=== PATIENT | male | born 1980 | race Caucasian/White ===

== ENCOUNTER 2024-03-27 20:50 | Emergency (ER) | payer BC, MEDICAID ==
[~2024-03-27] VITALS: Ht 177.8 cm; Wt 107.0 kg
[2024-03-27 21:23] VITALS: TEMP 36.78072; O2SAT 99
[2024-03-27 21:31] VITALS: TEMP 98.2; O2SAT 99
[2024-03-27] MEDS ORDERED: IBUP-2028 MT (22:23)
[2024-03-27 22:30] VITALS: BP 140/94; PULSE 96; RESP 18
[2024-03-27] MEDS: IBUPROFEN 400MG TABLET PO ONE (22:30)
== END 2024-03-27 22:34 | disposition home or self-care (01) ==
LOC: ER 20:50
DX: I10 Essential (primary) hypertension (principal)
CPT/HCPCS: 99282